=== PATIENT | female | born 1980 | race Caucasian/White ===

== ENCOUNTER 2016-03-18 09:26 | Day surgery (SDC) | payer BC ==
--- NOTE | ~2016-03-18 | EGD ---
EGD REPORT [facility] [address] [id number] NAME: HENRI FAIRBANKS : [birth year] [place] [facility] [place] [id number] AGE: 35 ADM/REG DATE : 03/18/16 MR#: [id number] REPORT SERV DATE: 03/18/16 DICTATED BY: CORNELL ROACH DATE: 03/18/16 REPORT STATUS : Draft [facility]ANSCRIBED BY: [facility] DATE: 03/18/16 Endoscopy Center Patient Name: Henri Fairbanks Date of : 1980 Attending MD: CORNELL ROACH MD Procedure Date No Time: 03/18/2016 Procedure: Upper GI endoscopy Indications: Suspected esophageal reflux Referring MD: JAGJIT HAYES Medicines: Propofol per Anesthesia Complications: No immediate complications. Procedure: Pre-Anesthesia Assessment: - ASA Grade Assessment: III - A patient with severe systemic disease. After obtaining informed consent, the endoscope was passed under direct vision. Throughout the procedure, the patient's blood pressure, pulse, and oxygen saturations were monitored continuously. The GIF [id number] was introduced through the mouth, and advanced to the third part of duodenum. The upper GI endoscopy was accomplished without difficulty. The patient tolerated the procedure well. Findings: Non-severe esophagitis with no bleeding was found in the lower third of the esophagus. There is no endoscopic evidence of hiatus hernia in the entire esophagus. The exam of the stomach was otherwise normal. The examined duodenum was normal. Impression: - Non-severe non-erosive esophagitis. - Normal examined duodenum. Procedure Code(s): --- Professional --- 37368, Esophagogastroduodenoscopy, flexible, transoral; diagnostic, including collection of specimen(s) by brushing or washing, when performed (separate procedure) Diagnosis Code(s): --- Professional --- K20.8, Other esophagitis CPT copyright 2013 [employer]. All rights reserved. The codes documented in this report are preliminary and upon accounting bookkeeper review may EGD REPORT [facility] [address] [place] [address] NAME: HENRI FAIRBANKS : [birth year] [place] [facility] [place] [id number] AGE: 35 ADM/REG DATE : 03/18/16 MR#: [id number] REPORT SERV DATE: 03/18/16 DICTATED BY: CORNELL ROACH. DATE: 03/18/16 REPORT STATUS : Draft TRANSCRIBED BY: [employer] DATE: 03/18/16 be revised to meet current compliance requirements. Cornell Roach MD CORNELL ROACH MD 03/18/2016 12:59 PM This report has been signed electronically. Number of Addenda: 0 Note Initiated On: 03/18/2016 12:06 PM Scope Withdrawal Time 0 hours 0 minutes 0 seconds [address] [place] [address]
--- NOTE | ~2016-03-18 | EGD ---
EGD REPORT [facility] [address] [id number] NAME: HENRI FAIRBANKS : [birth year] [place] : [place] [facility] [place] PAT#: [id number] AGE: 35 ADM/REG DATE : 03/18/16 MR#: [id number] REPORT SERV DATE: 03/18/16 DICTATED BY: CORNELL ROACH DATE: 03/18/16 REPORT STATUS : Draft [facility]ANSCRIBED [facility]: [facility] DATE: 03/18/16 Endoscopy Center Patient Name: Henri Fairbanks Date of : 1980 Attending MD: CORNELL ROACH MD Procedure Date No Time: 03/18/2016 Procedure: Colonoscopy Indications: Screening in patient at increased risk: Family history 1st-degree relative with colorectal cancer < 60 years old Referring MD: JAGJIT HAYES Medicines: Propofol per Anesthesia Complications: No immediate complications. Procedure: Pre-Anesthesia Assessment: - ASA Grade Assessment: III - A patient with severe systemic disease. After I obtained informed consent, the scope was passed under direct vision. Throughout the procedure, the patient's blood pressure, pulse, and oxygen saturations were monitored continuously. The [facility] [id number] was introduced through the anus and advanced to the terminal ileum. The colonoscopy was performed without difficulty. The patient tolerated the procedure well. The quality of the bowel preparation was excellent. Findings: The terminal ileum contained a few three mm ulcers. No bleeding was present. Biopsies were taken with a cold forceps for histology. multiple samll small ulcers,3 in ti with some edematous and erythematous mucosa The colon (entire examined portion) appeared normal. The retroflexed view of the distal rectum and anal verge was normal and showed no anal or rectal abnormalities. Impression: - A few ulcers in the terminal ileum. Biopsied. - The entire examined colon is normal. Recommendation: - The patient will be observed post-procedure, until all discharge criteria are met. - Continue present medications. - The findings and recommendations were discussed with the patient and their designated guardian. - After the procedure, if you experience any pain in abdomen or chest,shortness of breath,fever,chills,blood in stool,rectal bleeding,vomiting of any material,nausea,black stools or weakness or dizziness, EGD REPORT [address] [address] NAME: HENRI FAIRBANKS : [birth year] [place]US : [place] [facility] [place]#: [id number] AGE: 35 ADM/REG DATE : 03/18/16 MR#: [id number] REPORT SERV DATE: 03/18/16 DICTATED BY: CORNELL ROACH. DATE: 03/18/16 REPORT STATUS : Draft TRANSCRIBED BY: [employer] DATE: 03/18/16 GO TO THE EMERGENCY IMMEDIATELY!!!!!!!!! Procedure Code(s): --- Professional --- 38595, Colonoscopy, flexible, proximal to splenic flexure; with biopsy, single or multiple Diagnosis Code(s): --- Professional --- K63.3, Ulcer of intestine Z12.11, Encounter for screening for malignant neoplasm of colon Z80.0, Family history of malignant neoplasm of digestive organs CPT copyright 2013 [employer]. All rights reserved. The codes documented in this report are preliminary and upon turpentine farmer review may be revised to meet current compliance requirements. Cornell Roach MD CORNELL ROACH MD 03/18/2016 1:04 PM This report has been signed electronically. Number of Addenda: 0 Note Initiated On: 03/18/2016 12:04 PM Scope Withdrawal Time 0 hours 11 minutes 6 seconds [id number] [place] [id number]
[~2016-03-18 09:26] MED LIST: ALLERGY SHOTS SQ; AMIT100 PO; BUSPAR10 PO; ERRIN0.35 MG PO; FISH-EPA1000 MG PO; HYZAAR1 TAB PO; LINZESS 145 M145 MCG PO; MAGNESIUM PO; MOBIC15 MG PO; PRILO PO; PROVHFA INH; SINGULAIR1 PO; STRATT PO; SUPER B COMP PO; VIT D3 PO; VITAMIN B-625 MG PO; ZOMIG ZMT2.5 MG PO
== END 2016-03-18 23:59 | disposition home or self-care (01) ==
LOC: DMU 09:26
PROVIDERS: Internal Medicine Gastroenterology
PROC: 0DJ08ZZ Inspection of Upper Intestinal Tract, Via Natural or Artificial Opening Endoscopic (ICD-10-PCS; principal; 2016-03-18 11:30)
PROC: 0DB88ZX Excision of Small Intestine, Via Natural or Artificial Opening Endoscopic, Diagnostic (ICD-10-PCS; 2016-03-18 11:30)
DX: Z12.11 Encounter for screening for malignant neoplasm of colon (principal); K52.9 Noninfective gastroenteritis and colitis, unspecified; K20.8 Other esophagitis; K63.3 Ulcer of intestine; Z80.0 Family history of malignant neoplasm of digestive organs; I10 Essential (primary) hypertension; K21.9 Gastro-esophageal reflux disease without esophagitis; F41.9 Anxiety disorder, unspecified; E66.9 Obesity, unspecified; K58.9 Irritable bowel syndrome, unspecified; J45.909 Unspecified asthma, uncomplicated; G43.909 Migraine, unspecified, not intractable, without status migrainosus; F17.210 Nicotine dependence, cigarettes, uncomplicated; N39.0 Urinary tract infection, site not specified; M19.90 Unspecified osteoarthritis, unspecified site; K31.84 Gastroparesis; L30.9 Dermatitis, unspecified; Z79.1 Long term (current) use of non-steroidal anti-inflammatories (NSAID); Z79.899 Other long term (current) drug therapy; Z90.89 Acquired absence of other organs; Z98.890 Other specified postprocedural states
CPT/HCPCS: 84703; 88305